=== PATIENT | female | born 1985 | race Caucasian/White ===

== ENCOUNTER 2016-09-29 17:45 | Observation (INO) | payer MEDICAID ==
[~2016-09-29] VITALS: Ht 149.9 cm; Wt 80.7 kg
== END 2016-09-29 19:30 | disposition home or self-care (01) ==
LOC: L&D 17:45
PROVIDERS: ADMIT Obstetrics & Gynecology; ATTEND Obstetrics & Gynecology
DX: Z34.93 Encounter for supervision of normal pregnancy, unspecified, third trimester (principal); Z3A.36 36 weeks gestation of pregnancy
CPT/HCPCS: 59025; 76815; 76818; G0378

== ENCOUNTER 2016-10-06 18:47 | Observation (INO) | payer MEDICAID ==
[~2016-10-06] VITALS: Ht 149.9 cm; Wt 80.3 kg
[2016-10-06] MEDS ORDERED: PREN-88 PO (18:59)
[2016-10-06] MEDS ORDERED: OCD PO (18:59)
[2016-10-06] MEDS ORDERED: INSLIS SQ (18:59)
[2016-10-06] MEDS ORDERED: FERR-63 PO (18:59)
[2016-10-06] MEDS ORDERED: INSULIN LISPRO 100 UNITS/ML SUBCUT SCH (21:00)
[2016-10-07] MEDS ORDERED: CALCIUM CARBONATE/VITAMIN D3 500MG TABLET PO SCH (09:00)
[2016-10-07] MEDS ORDERED: FERROUS SULFATE 325MG TABLET PO SCH (09:00)
== END 2016-10-06 21:00 | disposition home or self-care (01) ==
LOC: L&D 18:47
PROVIDERS: ADMIT Obstetrics & Gynecology; ATTEND Obstetrics & Gynecology
DX: Z34.93 Encounter for supervision of normal pregnancy, unspecified, third trimester (principal); Z3A.37 37 weeks gestation of pregnancy
CPT/HCPCS: 59025; 76815; 76818; G0378; 99281

== ENCOUNTER 2016-10-13 18:02 | Observation (INO) | payer MEDICAID ==
[~2016-10-13] VITALS: Ht 149.9 cm; Wt 80.7 kg
[~2016-10-13 18:02] MED LIST: FERR-63 PO; INSLIS SQ; OCD PO; PREN-88 PO
== END 2016-10-13 19:42 | disposition home or self-care (01) ==
LOC: L&D 18:02
PROVIDERS: ADMIT Obstetrics & Gynecology; ATTEND Obstetrics & Gynecology
DX: O24.414 Gestational diabetes mellitus in pregnancy, insulin controlled (principal); Z80.0 Family history of malignant neoplasm of digestive organs; Z3A.38 38 weeks gestation of pregnancy
CPT/HCPCS: 59025; 76815; 76818; G0378

== ENCOUNTER 2016-10-18 09:12 | Inpatient (IN) | payer MEDICAID ==
[~2016-10-18] VITALS: Ht 149.9 cm; Wt 80.7 kg
[2016-10-18] MEDS ORDERED: LACTATED RINGERS 1,000 ML IV SCH ×2 (10:47→11:00)
[2016-10-18] MEDS ORDERED: OXYTOCIN 20 UNITS in LACTATED RINGERS 1,000 ML IV SCH (11:00)
[2016-10-18 12:12] LABS: BASOPHILS % 0.4 % (0.0-2.0); EOSINOPHILS % 0.5 % (0.0-5.0); HEMATOCRIT. 34.3 % (36.0-48.0); HEMOGLOBIN. 11.4 g/dL (12.0-16.0); LYMPHOCYTES % 14.4 % (20.0-50.0); MEAN CORPUSCULAR VOLUME 84.3 fL (81.0-99.0); MEAN PLATELET VOLUME 7.9 fl (7.4-10.4); NEUTROPHILS % 77.7 % (40.0-76.0); PLATELET 298 x1000/uL (130-400); RED BLOOD CELL COUNT 4.07 mill/uL (4.2-5.4); RED CELL DISTRIBUTION WIDTH 19.2 % (11.6-14.6)
[2016-10-18 12:16] LABS: PARTIAL THROMBOPLASTIN TIME 29.1 sec (24.0-34.0)
[2016-10-18 13:14] LABS: CLARITY URINE CLEAR (CLEAR); COLOR URINE YELLOW (YELLOW); GLUCOSE URINE NEGATIVE (NEGATIVE); KETONES URINE NEGATIVE (NEGATIVE); LEUKOCYTE ESTERASE URINE NEGATIVE (NEGATIVE); NITRITE URINE NEGATIVE (NEGATIVE); OCCULT BLOOD URINE NEGATIVE (NEGATIVE); PH URINE 6.5 (4.5-8.0); PROTEIN URINE NEGATIVE (NEGATIVE); SPECIFIC GRAVITY URINE 1.016 (1.005-1.030); UROBILINOGEN URINE 0.2 E.U./dL (0.2-1.0)
[2016-10-18 13:38] LABS: *AMPHETAMINES SCREEN URINE NEGATIVE (NEGATIVE); *BARBITURATES SCREEN URINE NEGATIVE (NEGATIVE); *BENZODIAZEPINES SCREEN URINE NEGATIVE (NEGATIVE); *COCAINE SCREEN URINE NEGATIVE (NEGATIVE); CANNABINOID URINE SCREEN NEGATIVE (NEGATIVE); METHADONE URINE SCREEN NEGATIVE (NEGATIVE); OPIATES URINE SCREEN NEGATIVE (NEGATIVE); PHENCYCLIDINE URINE SCREEN NEGATIVE (NEGATIVE)
[2016-10-18 14:01] LABS: HEPATITIS B SURFACE ANTIGEN NEGATIVE; RUBELLA IGG 10.1 IU/mL (4.99-10)
[2016-10-18] MEDS ORDERED: EPHEDRINE SULFATE 50MG/ML VIAL ONE (16:50)
[2016-10-18] MEDS ORDERED: OXYTOCIN 10 UNITS/ML 1ML ONE (16:51)
[2016-10-18] MEDS ORDERED: CEFAZOLIN 2000MG PREMIX 50 ML IV ONE (16:51)
[2016-10-18] MEDS ORDERED: SODIUM CHLORIDE 0.9% 10ML VIAL ONE (16:51)
[2016-10-18] MEDS ORDERED: FENTANYL CITRATE/PF 50MCG/ML 2ML VIAL ONE (16:52)
[2016-10-18] MEDS ORDERED: MORPHINE SULFATE/PF 1MG/ML 10ML AMP ONE (16:52)
[2016-10-18] MEDS ORDERED: DIPHENHYDRAMINE 50MG/ML VIAL ONE (16:53)
[2016-10-18] MEDS ORDERED: ONDANSETRON HCL 4MG/2ML VIAL ONE (16:53)
[2016-10-18] MEDS ORDERED: GLYCOPYRROLATE 0.2 MG/ML 2ML VIAL ONE (19:40)
[2016-10-18] MEDS ORDERED: ACETAMINOPHEN 500MG TABLET PO PRN (21:00)
[2016-10-18] MEDS ORDERED: ACETAMINOPHEN WITH CODEINE 300/30MG TABLET PO PRN (21:00)
[2016-10-18] MEDS ORDERED: LANOLIN OINT 0.25 GM TUBE TOP PRN (21:30)
[2016-10-18] MEDS ORDERED: DEXT 5%/LACTATED RINGERS 1,000 ML IV SCH (21:30)
[2016-10-18] MEDS: OXYTOCIN 20 UNITS in LACTATED RINGERS 1,000 ML IV SCH (22:33)
[2016-10-18] MEDS: KETOROLAC 30MG/ML VIAL IV SCH (22:34)
[2016-10-18] MEDS ORDERED: BUTORPHANOL TARTRATE 2 MG/ML VIAL IM PRN (23:00)
[2016-10-18] MEDS ORDERED: DIPHENHYDRAMINE 50MG/ML VIAL IV PRN (23:00)
[2016-10-18] MEDS ORDERED: NALOXONE HCL 0.4 MG/ML 1ML VIAL IV PRN (23:00)
[2016-10-18 23:30] VITALS: BP 107/61
[2016-10-19] VITALS: BP 104/60
[2016-10-19 01:00] VITALS: BP 114/66
[2016-10-19] MEDS: OXYTOCIN 20 UNITS in LACTATED RINGERS 1,000 ML IV SCH (04:47)
[2016-10-19] MEDS: KETOROLAC 30MG/ML VIAL IV SCH ×2 (05:42→13:14)
[2016-10-19 06:15] LABS: BASOPHILS % 0.5 % (0.0-2.0); EOSINOPHILS % 0.1 % (0.0-5.0); HEMATOCRIT. 31.2 % (36.0-48.0); HEMOGLOBIN. 10.2 g/dL (12.0-16.0); LYMPHOCYTES % 10.7 % (20.0-50.0); MEAN CORPUSCULAR VOLUME 85.6 fL (81.0-99.0); MEAN PLATELET VOLUME 7.4 fl (7.4-10.4); MONOCYTES % 5.9 % (2.0-8.0); NEUTROPHILS % 82.8 % (40.0-76.0); PLATELET 251 x1000/uL (130-400); RED BLOOD CELL COUNT 3.65 mill/uL (4.2-5.4); RED CELL DISTRIBUTION WIDTH 19.1 % (11.6-14.6)
[2016-10-19 08:23] VITALS: BP 100/58
[2016-10-19] MEDS: SIMETHICONE 80MG TABLET CHEW PO SCH ×2 (13:14→19:50)
[2016-10-19 15:59] VITALS: BP 105/74
[2016-10-19 19:50] VITALS: BP 118/69
[2016-10-19] MEDS: DOCUSATE SODIUM 100MG CAPSULE PO SCH (19:51)
[2016-10-19 21:10] VITALS: BP 119/75
[2016-10-20] VITALS: BP 112/79
[2016-10-20] MEDS: ACETAMINOPHEN WITH CODEINE 300/30MG TABLET PO PRN ×5 (01:43→21:11)
[2016-10-20] MEDS: SIMETHICONE 80MG TABLET CHEW PO SCH ×4 (07:24→21:10)
[2016-10-20 07:48] VITALS: BP 100/70
[2016-10-20 16:04] VITALS: BP 102/53
[2016-10-20 20:00] VITALS: BP 119/75
[2016-10-20] MEDS: DOCUSATE SODIUM 100MG CAPSULE PO SCH (21:09)
[2016-10-21 00:48] VITALS: BP 116/69
[2016-10-21 00:49] VITALS: BP 116/69
[2016-10-21] MEDS: ACETAMINOPHEN WITH CODEINE 300/30MG TABLET PO PRN ×2 (01:03→07:48)
[2016-10-21 04:00] VITALS: BP 117/68
[2016-10-21 07:43] VITALS: BP 110/81
[2016-10-21] MEDS: SIMETHICONE 80MG TABLET CHEW PO SCH (07:49)
[2016-10-21] MEDS ORDERED: BISACODYL 10MG SUPP PR NR (10:00)
== END 2016-10-21 12:15 | disposition home or self-care (01) | DRG 540 ==
LOC: L&D 09:12 → OBSVTOIN 09:12 → L&D 09:29 → 7EST PP/OB 23:19
PROVIDERS: ADMIT Obstetrics & Gynecology; ATTEND Obstetrics & Gynecology
PROC: 10D00Z1 Extraction of Products of Conception, Low, Open Approach (ICD-10-PCS; principal; 2016-10-19)
DX: O24.424 Gestational diabetes mellitus in childbirth, insulin controlled (principal); D64.9 Anemia, unspecified; O34.211 Maternal care for low transverse scar from previous cesarean delivery; O99.02 Anemia complicating childbirth; O36.63X0 Maternal care for excessive fetal growth, third trimester, not applicable or unspecified; Z80.0 Family history of malignant neoplasm of digestive organs; Z79.899 Other long term (current) drug therapy; Z3A.39 39 weeks gestation of pregnancy; Z37.0 Single live birth
CPT/HCPCS: 36415; 80305; 81003; 82947; 82962; 85025; 85610; 85730; 86592; 86703; 86762; 86850; 86900; 87340; 88307; A4216; J0171; J0690; J1200; J1885; J2274; J2405; J3010; J3490; J7120; A4315